=== PATIENT | female | born 1990 ===

== ENCOUNTER 2018-05-10 18:24 | Outpatient (CLI) | payer OTHER | END 2018-05-10 18:25 | disposition home or self-care (01) | LOC: C.SLEEP 18:25 | DX: G47.33 Obstructive sleep apnea (adult) (pediatric) (principal) ==

== ENCOUNTER 2018-07-03 19:55 | Outpatient (CLI) | payer OTHER | END 2018-07-03 19:56 | disposition home or self-care (01) | LOC: C.SLEEP 19:55 | DX: G47.33 Obstructive sleep apnea (adult) (pediatric) (principal) ==